=== PATIENT | male | born 1980 | race Caucasian/White ===

== ENCOUNTER 2020-10-07 11:09 | Day surgery (SDC) | payer BC ==
[2020-09-29 13:03] VITALS: BMI 31.8
[2020-10-07] MEDS ORDERED: MIDAZOLAM HCL 2 MG/2 ML SINGLE DOSE VIAL ONE ×2 (13:45→14:30)
[2020-10-07] MEDS ORDERED: BUPIVACAINE HCL/PF 0.25% (2.5MG/ML) 10 ML VIAL ONE (13:47)
[2020-10-07] MEDS ORDERED: PROPOFOL 20 ML ONE ×2 (14:37→14:38)
[2020-10-07] MEDS ORDERED: BUPIVACAINE HCL/PF 0.25% (2.5MG/ML) 10 ML VIAL IJ ONE (14:55)
[2020-10-07] MEDS ORDERED: oxyCODONE HCL 5 MG TABLET PO PRN ×2 (14:58)
[2020-10-07] MEDS ORDERED: ONDANSETRON 4 MG/2 ML VIAL IVPUSH PRN (14:58)
[2020-10-07] MEDS ORDERED: LACTATED RINGERS SOLUTION 1,000 ML IV SCH (15:00)
[2020-10-07 16:22] VITALS: TEMP 98.2
[2020-10-07 16:44] VITALS: BP 124/72; PULSE 74
== END 2020-10-07 16:48 | disposition home or self-care (01) ==
LOC: FASU 11:09
PROVIDERS: ATTEND Orthopaedic Surgery
PROC: 0QBR0ZZ Excision of Left Toe Phalanx, Open Approach (ICD-10-PCS; principal; 2020-10-07 14:54)
DX: M25.775 Osteophyte, left foot (principal)
CPT/HCPCS: 88304-TC; 88311-TC